=== PATIENT | male | born 1995 | race Two or more races ===

== ENCOUNTER 2022-07-14 21:21 | Emergency (ER) | payer MEDICAID ==
[~2022-07-14] VITALS: Ht 175.3 cm; Wt 84.1 kg
[~2022-07-14 21:21] MED LIST: ACET-66 PO; IBUP-1554 PO; INSLAN SQ; INSNOV SQ
[2022-07-14] MEDS ORDERED: INSU100V39 SQ ×2 (21:29→22:17)
[2022-07-14] MEDS ORDERED: INSU100V52 SQ ×2 (21:29→22:17)
[2022-07-14 21:33] VITALS: BP 133/82
[2022-07-14] MEDS ORDERED: INSULIN GLARGINE,HUM.REC.ANLOG 100 UNITS/ML SQ ONE (22:30)
[2022-07-14] MEDS ORDERED: INSULIN LISPRO 100 UNITS/ML SQ ONE (22:30)
== END 2022-07-14 22:41 | disposition home or self-care (01) ==
LOC: EMS 21:25
DX: E10.8 Type 1 diabetes mellitus with unspecified complications (principal); Z76.0 Encounter for issue of repeat prescription
CPT/HCPCS: 99284; 82962; 96372; J1815